=== PATIENT | male | born 1995 | race Caucasian/White ===

== ENCOUNTER 2022-03-11 18:42 | Emergency (ER) | payer MEDICAID ==
[2022-03-11] MEDS ORDERED: TORAdol 30 mg Injection IM ONE (19:14)
[2022-03-11] MEDS ORDERED: TORAdol 30 mg Injection ONE (19:15)
[2022-03-11] MEDS ORDERED: PENICILLIN V POTASSIUM PO ONE (19:17)
[2022-03-11] MEDS ORDERED: PENICILLIN V POTASSIUM ONE (19:18)
--- NOTE | 2022-03-11 19:20 | ERPHSYRPT ---
- History of Present Illness Source: patient Exam Limitations: no limitations Patient Subjective Stated Complaint: pt c/o of teeth pain on the right side top and bottom Triage Nursing Assessment: Pt brought to the ER by his girlfriend, vitallita wnl, rates pain as 9/10, pain to top and bottom back teeth on the right side of mouth, denies any other issues at this time Physician History: 26 yo wm w dental pain which he states "has been for a long time." He denies acute trauma. Pain is severe and worse w chewing. Fever is denied. Timing/Duration: gradual onset (Chronic) Severity: severe ENT Location: dental Prearrival Treatment: no prearrival treatment Modifying Factors: Improves With: other (chewing) Associated Symptoms: denies symptoms, jaw pain Allergies/Adverse Reactions: No Known Drug Allergies Allergy (Verified 03/11/22 19:01) Hx Influenza Vaccination/Date Given: No Hx Pneumococcal Vaccination/Date Given: No Travel Risk - International Travel Have you traveled outside of the country in past 3 weeks: No - Coronavirus Screening Are you exhibiting any of the following symptoms?: No Close contact with a COVID-19 positive Pt in past 14-21 Days: No - Vaccine Status Have you recieved a Covid-19 vaccination: Yes 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[employer] - Vaccination Dates Date of 2cond Vaccination (if applicable): 09/2020 - Review of Systems Constitutional: No Symptoms Eyes: No Symptoms Ears, Nose, & Throat: No Symptoms Respiratory: No Symptoms Cardiac: No Symptoms Abdominal/Gastrointestinal: No Symptoms Genitourinary Symptoms: No Symptoms Musculoskeletal: No Symptoms Skin: No Symptoms Neurological: No Symptoms Psychological: No Symptoms Endocrine: No Symptoms Hematologic/Lymphatic: No Symptoms Immunological/Allergic: No Symptoms - Past Medical History Pertinent Past Medical History: No - Past Surgical History Past Surgical History: No - Social History Smoking Status: Never smoker Exposure to second hand smoke: No Drug Use: none Patient Lives Alone: No Significant Family History: no pertinent family hx - Nursing Vital Signs Nursing Vital Signs: Initial Vital Signs Temperature 99.4 F 03/11/22 18:52 Pulse Rate 99 H 03/11/22 18:52 Blood Pressure 126/75 03/11/22 18:52 O2 Sat by Pulse Oximetry 97 03/11/22 18:52 Pain Scale Pain Intensity 10 WNL - Physical Exam General Appearance: no apparent distress Eye Exam: bilateral eye: normal inspection, PERRL, EOMI Ear Exam: bilateral ear: auricle normal, canal normal, TM normal Nasal Exam: normal inspection Throat Exam: pharynx normal, dental tenderness (L superior-inferior 2nd molars fractured and TTP), moist mucus membranes, No foreign body, No mandibular swelling, No maxillary swelling, No pharynx swelling, No pharynx tenderness, No tongue swollen, No tonsillar exudate, No tonsillar swelling, No trismus, No uvula swelling, No voice changes Neck Exam: normal inspection, non-tender, supple, full range of motion, trachea midline, No Brudzinski's sign, No carotid bruit, No Kernig's sign Cardiovascular/Respiratory Exam: normal breath sounds, regular rate/rhythm, heart sounds normal Abdominal Exam: non-tender, soft Neurologic Exam: alert, oriented x 3, 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, 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, normal mood/affect, nml cerebellar function, nml station & gait, sensation nml Skin Exam: normal color, warm, dry SpO2 Interpretation: normal SpO2: 97 O2 Delivery: Room Air - Course Nursing assessment & vital signs reviewed: Yes Ordered Tests: Medication Summary Discontinued Medications Generic Name Dose Route Start Last Admin Trade Name Freq PRN Reason Stop Dose Admin Ketorolac Tromethamine 60 mg 03/11/22 19:14 03/11/22 19:18 Ketorolac Tromethamine 30 Mg/Ml Inj IM 03/11/22 19:15 60 mg STAT ONE Administration Ketorolac Tromethamine Confirm 03/11/22 19:15 Ketorolac Tromethamine 30 Mg/Ml Inj Administered 03/11/22 19:16 Dose 60 mg .ROUTE .STK-MED ONE Penicillin V Potassium 500 mg 03/11/22 19:17 03/11/22 19:18 Penicillin V Potassium 250 Mg Tablet PO 03/11/22 19:18 500 mg STAT ONE Administration Penicillin V Potassium Confirm 03/11/22 19:18 Penicillin V Potassium 250 Mg Tablet Administered 03/11/22 19:19 Dose 500 mg .ROUTE .STK-MED ONE - Progress Progress: improved Progress Note: 03/11/22 19:20 60mg IM Toradol/500mg po PenV Counseled pt/family regarding: diagnosis, need for follow-up - Departure Departure Disposition: Home Clinical Impression: Chronic dental pain Condition: Stable Critical Care Time: No Instructions: Tooth Abscess (DC), Tooth Decay, Adult (DC) Additional Instructions: Dentist MOOK Continue with Penicillin in AM Lodine as needed for pain Prescriptions: Etodolac 400 mg [Lodine 400 mg] 400 mg PO BID PRN PRN #14 tablet PRN Reason: Pain Penicillin V Potassium 500 mg PO BID #20 tablet
[2022-03-11 19:37] VITALS: BP 120/70; PULSE 74
[2022-03-11 20:02] VITALS: O2SAT 97
== END 2022-03-11 19:37 | disposition home or self-care (01) ==
LOC: ED 18:42
DX: G89.29 Other chronic pain (principal); K08.89 Other specified disorders of teeth and supporting structures
CPT/HCPCS: 96372; 99283; J1885; A9270-GY

== ENCOUNTER 2022-04-15 21:29 | Emergency (ER) | payer MEDICAID, OTHER ==
[2022-04-15 21:48] VITALS: O2SAT 100
--- NOTE | 2022-04-15 22:29 | ERPHSYRPT ---
- History of Present Illness Time Seen by Provider: 04/15/22 21:30 Source: patient Exam Limitations: no limitations Patient Subjective Stated Complaint: PT states he took a home covid test and it was positive, states SO is also positive, Pt states ,mild cough, h/A, and sinus drainage, ER visit mainly for "peace of mind" Triage Nursing Assessment: PT ambulated to room without difficulty, Alert and oriented x3, lungs CTA bilaterally Physician History: 26 years old presented in the ER with chief complaint of flulike symptoms for the last 4 days. He was tested positive at home for COVID-19. Has mild dry cough without difficulty breathing but does have nasal congestion and sore throat. No fever or chills reported. Having generalized body aches and headaches off and on. Patient wants to be tested for COVID-19. Timing/Duration: day(s) (4), gradual onset Cough Quality/Degree: mild, dry cough Modifying Factors: Improves With: nothing Associated Symptoms: cough, muscle aches, nasal congestion, nasal drainage, sinus infection, sore throat, No shortness of breath, No wheezing Allergies/Adverse Reactions: No Known Drug Allergies Allergy (Verified 03/11/22 19:01) Hx Tetanus, Diphtheria Vaccination/Date Given: Yes Hx Influenza Vaccination/Date Given: Yes Hx Pneumococcal Vaccination/Date Given: Yes Immunizations Up to Date: Yes Travel Risk - International Travel Have you traveled outside of the country in past 3 weeks: No - Coronavirus Screening Are you exhibiting any of the following symptoms?: Yes Symptoms: Cough: New Onset, Vomiting/Diarrhea, Headaches/Body Aches/Fatigue Close contact with a COVID-19 positive Pt in past 14-21 Days: Yes - Vaccine Status Have you recieved a Covid-19 vaccination: Yes 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[employer] - Vaccination Dates Date of 2cond Vaccination (if applicable): 2020 - Review of Systems Constitutional: Fatigue, Weakness Eyes: No Symptoms Ears, Nose, & Throat: Nose Congestion, Throat Pain Respiratory: Cough Cardiac: No Symptoms Abdominal/Gastrointestinal: No Symptoms Genitourinary Symptoms: No Symptoms Musculoskeletal: Myalgias Skin: No Symptoms Neurological: No Symptoms Psychological: No Symptoms Endocrine: No Symptoms Hematologic/Lymphatic: No Symptoms Immunological/Allergic: No Symptoms - Past Medical History Pertinent Past Medical History: Yes Neurological History: No Pertinent History ENT History: No Pertinent History Cardiac History: No Pertinent History Respiratory History: No Pertinent History Endocrine Medical History: No Pertinent History Musculoskeletal History: No Pertinent History GI Medical History: No Pertinent History History: No Pertinent History Psycho-Social History: No Pertinent History Male Reproductive Disorders: No Pertinent History - Past Surgical History Past Surgical History: No - Social History Smoking Status: Never smoker Exposure to second hand smoke: No Drug Use: none Patient Lives Alone: No Significant Family History: no pertinent family hx - Nursing Vital Signs Nursing Vital Signs: Initial Vital Signs Temperature 98.4 F 04/15/22 21:36 Pulse Rate 98 H 04/15/22 21:36 Respiratory Rate 16 04/15/22 21:36 Blood Pressure 136/108 04/15/22 21:36 O2 Sat by Pulse Oximetry 100 04/15/22 21:36 Pain Scale Pain Intensity 8 - Physical Exam General Appearance: no apparent distress, alert Eye Exam: PERRL/EOMI Ears, Nose, Throat Exam: moist mucous membranes, pharyngeal erythema Neck Exam: normal inspection, supple, full range of motion Respiratory Exam: normal breath sounds, lungs clear Cardiovascular Exam: regular rate/rhythm, normal heart sounds Gastrointestinal/Abdomen Exam: soft, normal bowel sounds, No tenderness Back Exam: normal inspection, normal range of motion Extremity Exam: normal inspection, normal range of motion Neurologic Exam: alert, oriented x 3, cooperative, 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 Patient is not in any distress. Do not think needs any other work-up. Counseled on supportive care and outpatient follow-up. Discussed signs symptoms of worsening needing return to ER which he seems understanding. Blood Culture(s) Obtained: No Antibiotics given: No Counseled pt/family regarding: lab results, diagnosis, need for follow-up - Departure Departure Disposition: Home Clinical Impression: Viral syndrome, COVID-19 virus detected Condition: Stable Critical Care Time: No Referrals: DOCTOR,NO FAMILY [Primary Care Provider] - Follow up/PCP as directed JL CORTEZ DO [ACTIVE STAFF] - Follow Up with PCP/3 days Instructions: COVID-19 (DC), Viral Syndrome (DC) Additional Instructions: Take Tylenol/ibuprofen as needed. Follow-up with primary care for reevaluation. Return to ER for worsening.
[2022-04-15 22:38] VITALS: BP 157/87; PULSE 103
[2022-04-15 22:38] LABS: INFLUENZA A NEGATIVE (NEGATIVE); INFLUENZA B NEGATIVE (NEGATIVE); RESPIRATORY SYNCTIAL VIRUS NEGATIVE (Negative)
[2022-04-15 22:42] LABS: SARS-CoV-2 Xpert Express POSITIVE (NEGATIVE)
== END 2022-04-15 23:00 | disposition home or self-care (01) ==
LOC: ED 21:29
DX: U07.1 COVID-19 (principal); R05.1 Acute cough; R09.81 Nasal congestion; J02.9 Acute pharyngitis, unspecified; M79.10 Myalgia, unspecified site; R51.9 Headache, unspecified
CPT/HCPCS: 0241U; 99282

== ENCOUNTER 2023-07-03 08:57 | Emergency (ER) | payer BC, OTHER ==
[2023-07-03 09:11] VITALS: TEMP 97.7
[2023-07-03 09:18] VITALS: O2SAT 100
[2023-07-03 09:50] LABS: Absolute Neutrophil Ct (ANC) 14.34 x10^3/uL (1.4-6.9); BASOPHIL % 0.3 % (0.0-0.4); Basophil (Absolute #) 0.04 x10^3/uL (0-0.4); Eosinophil % 0.1 % (0.00-5.0); Eosinophil (Absolute #) 0.01 x10^3/uL (0-0.5); Hematocrit 48.8 % (42-50); Hemoglobin 16.4 g/dL (12.5-18.0); IMMATURE GRAN # 0.08 x10^3u/L (0.00-0.03); IMMATURE GRAN % 0.5 % (0.00-0.4); Lymphocyte (Absolute #) 0.55 x10^3/uL (1.0-4.6); Lymphocytes % 3.5 % (24.0-44.0); Mean Corpuscular Hemoglobin 28.2 pg (26-32); Mean Corpuscular Hgb Concent. 33.6 g/dL (32-36); Monocyte (Absolute #) 0.86 x10^3/uL (0.0-1.3); Monocytes % 5.4 % (0.0-12.0); Neutrophil % 90.2 % (36.0-66.0); Platelet Count 330 x10^3/uL (150-450); Red Blood Count 5.81 x10^6/uL (4.1-5.6); Red Cell Distribution Width 11.9 % (11.5-14.0); White Blood Count 15.9 x10^3/uL (4.0-10.5)
[2023-07-03 10:03] LABS: ANION GAP 16.5 MEQ/L (5-15); BILIRUBIN,TOTAL 1.7 mg/dL (0.2-1.3); Calcium 9.8 mg/dL (8.4-10.2); Creatinine 1 1.04 mg/dL (0.66-1.25); EST GLOMERULAR FILTRATION RATE 102.2 ML/MIN; Potassium 3.9 mmol/L (3.5-5.1); Total Protein 8.6 g/dL (6.3-8.2)
[2023-07-03 10:04] LABS: INFLUENZA A NEGATIVE (NEGATIVE); INFLUENZA B NEGATIVE (NEGATIVE); RESPIRATORY SYNCTIAL VIRUS NEGATIVE (NEGATIVE); SARS-CoV-2 Xpert Express NEGATIVE (NEGATIVE)
[2023-07-03 10:10] VITALS: PULSE 82; RESP 16
--- NOTE | 2023-07-03 10:10 | ERPHSYRPT ---
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 He had to pull the car over and call for help. Patient c/o N/V, diarrhea, body aches, cough. Triage Nursing Assessment: Patient arrived by ambulance. He is alert and orient ed. No SOB. No cough noted during assessment. AGEE WNL. Patient able to transfer self from EMS cot to ER bed. Skin tone normal. Denies abdominal pain. Patient does have some sniffles; clear nasal drainage. Physician History: Patient is a 27-year-old male no significant past medical history presents to our ED with complaints of nausea vomiting diarrhea body aches and a dry cough. 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 Patient began to drive home his symptoms intensified. Patient states his hands began to posture. Patient pulled over and called 911. Patient is currently asymptomatic. He denies pain. No chest pain. No shortness of breath. Patient is no longer nauseous. Symptoms are mild to moderate in intensity. Patient denies a history of the same. Patient voices no other complaints or concerns at this time. Father at bedside requesting laboratory work-up Portions of this note were created with voice recognition technology. There may be grammatical, spelling, punctuation or sound alike errors Timing/Duration: today Severity: moderate Modifying Factors: Improves With: nothing Associated Symptoms: No abdominal pain, No shortness of breath, No chills, No chest pain, No fever, No headaches, No rash, No syncope, No seizure, No weakness Allergies/Adverse Reactions: No Known Drug Allergies Allergy (Verified 07/03/23 09:02) Home Medications: Desvenlafaxine Succinate [Pristiq] 1 tab PO DAILY 07/03/23 [History] Hx Tetanus, Diphtheria Vaccination/Date Given: Yes Hx Influenza Vaccination/Date Given: Yes Hx Pneumococcal Vaccination/Date Given: No Immunizations Up to Date: Yes Travel Risk - International Travel Have you traveled outside of the country in past 3 weeks: No - Coronavirus Screening Are you exhibiting any of the following symptoms?: Yes Symptoms: Cough: New Onset, Vomiting/Diarrhea, Headaches/Body Aches/Fatigue - Vaccine Status Have you recieved a Covid-19 vaccination: Yes 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[employer] - Vaccination Dates Date of 2cond Vaccination (if applicable): 2020 - Review of Systems Constitutional: No Symptoms, No Fever, No Chills Eyes: No Symptoms Ears, Nose, & Throat: No Symptoms Respiratory: No Symptoms, No Cough, No Dyspnea Cardiac: No Symptoms, No Chest Pain, No Edema, No Syncope Abdominal/Gastrointestinal: No Symptoms, No Abdominal Pain, No Nausea, No Vomiting, No Diarrhea Genitourinary Symptoms: No Symptoms, No Dysuria Musculoskeletal: No Symptoms, No Back Pain, No Neck Pain Skin: No Symptoms, No Rash Neurological: No Symptoms, No Dizziness, No Focal Weakness, No Sensory Changes Psychological: No Symptoms Endocrine: No Symptoms Hematologic/Lymphatic: No Symptoms Immunological/Allergic: No Symptoms All Other Systems: Reviewed and Negative - Past Medical History Pertinent Past Medical History: Yes Neurological History: No Pertinent History ENT History: No Pertinent History Cardiac History: No Pertinent History Respiratory History: No Pertinent History Endocrine Medical History: No Pertinent History Musculoskeletal History: No Pertinent History GI Medical History: No Pertinent History History: No Pertinent History Psycho-Social History: Depression Male Reproductive Disorders: No Pertinent History Other Medical History: IBS, 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 Ríos) - Past Surgical History Past Surgical History: No - Social History Smoking Status: Never smoker Exposure to second hand smoke: No Drug Use: none Patient Lives Alone: No Significant Family History: no pertinent family hx - Nursing Vital Signs Nursing Vital Signs: Initial Vital Signs Temperature 97.7 F 07/03/23 09:03 Pulse Rate 81 07/03/23 09:03 Respiratory Rate 17 07/03/23 09:03 Blood Pressure 130/80 07/03/23 09:03 O2 Sat by Pulse Oximetry 99 07/03/23 09:03 Pain Scale Pain Intensity 3 - Physical Exam General Appearance: no apparent distress, alert Eye Exam: PERRL/EOMI, eyes nml inspection Ears, Nose, Throat Exam: normal ENT inspection, TMs normal, pharynx normal, mois t mucous membranes Neck Exam: normal inspection, non-tender, supple, full range of motion Respiratory Exam: normal breath sounds, lungs clear, airway intact, No respiratory distress Cardiovascular Exam: regular rate/rhythm, normal heart sounds, normal peripheral pulses Gastrointestinal/Abdomen Exam: soft, normal bowel sounds, No tenderness, No mass Back Exam: normal inspection, normal range of motion, No CVA tenderness, No vertebral tenderness Extremity Exam: normal inspection, normal range of motion, pelvis stable Neurologic Exam: alert, oriented x 3, cooperative, normal mood/affect, nml cerebellar function, nml station & gait, sensation nml, No motor deficits Skin Exam: normal color, warm, dry, No rash Lymphatic Exam: No adenopathy SpO2 Interpretation: normal SpO2: 100 O2 Delivery: Room Air - Course Nursing assessment & vital signs reviewed: Yes Ordered Tests: Active Orders 24 hr Category Date Time Status CBC W DIFF Stat Lab 07/03/23 09:47 Completed CMP Stat Lab 07/03/23 09:47 Completed Lab/Rad Data: Laboratory Result Diagrams 07/03/23 09:47 07/03/23 09:47 Laboratory Results 07/03/23 07/03/23 07/03/23 Range/Units 09:47 09:47 09:26 WBC 15.9 H (4.0-10.5) x10^3/uL RBC 5.81 H (4.1-5.6) x10^6/uL Hgb 16.4 (12.5-18.0) g/dL Hct 48.8 (42-50) % MCV 84.0 (78-100) fL MCH 28.2 (26-32) pg MCHC 33.6 (32-36) g/dL RDW 11.9 (11.5-14.0) % Plt Count 330 (150-450) x10^3/uL MPV 10.0 (7.5-11.0) fL Gran % 90.2 H (36.0-66.0) % Immature Gran % (Auto) 0.5 H (0.00-0.4) % Nucleat RBC Rel Count 0.0 (0.00-0.1) % Eos # (Auto) 0.01 (0-0.5) x10^3/uL Immature Gran # (Auto) 0.08 H (0.00-0.03) x10^3u/L Absolute Lymphs (auto) 0.55 L (1.0-4.6) x10^3/uL Absolute Monos (auto) 0.86 (0.0-1.3) x10^3/uL Absolute Nucleated RBC 0.00 (0.00-0.01) x10^3u/L Lymphocytes % 3.5 L (24.0-44.0) % Monocytes % 5.4 (0.0-12.0) % Eosinophils % 0.1 (0.00-5.0) % Basophils % 0.3 (0.0-0.4) % Absolute Granulocytes 14.34 H (1.4-6.9) x10^3/uL Basophils # 0.04 (0-0.4) x10^3/uL Sodium 141 (137-145) mmol/L Potassium 3.9 (3.5-5.1) mmol/L Chloride 104 (98-107) mmol/L Carbon Dioxide 25 (22-30) mmol/L Anion Gap 16.5 H (5-15) MEQ/L BUN 16 (9-20) mg/dL Creatinine 1.04 (0.66-1.25) mg/dL Estimated GFR 102.2 ML/MIN Glucose 114 H (74-106) mg/dL Calcium 9.8 (8.4-10.2) mg/dL Total Bilirubin 1.70 H (0.2-1.3) mg/dL AST 26 (17-59) U/L ALT 39 (0-50) U/L Alkaline Phosphatase 102 (38-126) U/L Serum Total Protein 8.6 H (6.3-8.2) g/dL Albumin 5.0 (3.5-5.0) g/dL Influenza Type A Ag NEGATIVE (NEGATIVE) Influenza Type B Ag NEGATIVE (NEGATIVE) RSV (PCR) NEGATIVE (NEGATIVE) SARS-CoV-2 (PCR) NEGATIVE (NEGATIVE) Slides for Path Review YES - Progress Progress: improved Progress Note: Patient is a 27-year-old male presents to our ED for evaluation of nausea vomiting diarrhea body aches dry cough. Symptoms worsened as he was driving home from his night cleaner. Upon arrival to our ED patient was asymptomatic. Father at bedside requesting laboratory work-up. Patient has a slight leukoc ytosis however there is no fever. No nidus of infection observed on today's physical exam. We will discharge patient home. Patient requested a work note. Patient is scheduled to work today and tomorrow. He will then be off till Sunday. We provided patient a work note so that he may return to work on Sunday. Father at bedside. They voiced no other complaints or concerns at this time. Portions of this note were created with voice recognition technology. There may be grammatical, spelling, punctuation or sound alike errors Complexity of problem addressed is moderate acute complicated No critical care time Complexity of data reviewed and analyzed is moderate. Test ordered test revi ewed. Results analyzed and correlated clinically with history and physical examination. Risk of complication and or risk of morbidity/mortality of patient management is low. Vital stable. Time spent to discharge patient is approximately 10 minutes. Plan of care established for shared decision making. No social determinants of health present to impede follow-up. Portions of this note were created with voice recognition technology. There may be grammatical, spelling, punctuation or sound alike errors 07/03/23 10:42 Counseled pt/family regarding: lab results, diagnosis, need for follow-up - Departure Departure Disposition: Home Clinical Impression: Viral syndrome, Nausea vomiting and diarrhea, Body aches Condition: Stable Critical Care Time: No Referrals: MERYL RÍOS [Primary Care Provider] - Follow up/PCP as directed Instructions: Viral Syndrome (DC) Additional Instructions: Discharge/Care Plan PRESTON SHELTON was seen on 07/03/23 in the Emergency Room. The patient was counseled regarding Diagnosis,Lab results, Imaging studies, need for follow up and when to return to the Emergency Room. Prescriptions given: Discharge Note I have spoken with the patient and/or caregivers. I have explained the patient's condition, diagnosis and treatment plan based on the information available to me at this time. I have answered the patient's and/or caregiver's questions and addressed any concerns. The patient and/or caregivers have as good understanding of the patient's diagnosis, condition and treatment plan as can be expected at this point. The vital signs have been stable. The patient's condition is stable and appropriate for discharge from the emergency department. The patient will pursue further outpatient evaluation with the primary care physician or other designated or consulting physician as outlined in the discha rge instructions. The patient and/or caregivers are agreeable to this plan of care and follow-up instructions have been explained in detail. The patient and/or caregivers have received these instruction. The patient/and or caregivers are aware that any significant change in condition or worsening of symptoms should prompt an immediate return to this or the closest emergency department or call 911. Forms: Work/School Release Form
[2023-07-03 10:38] LABS: Slide Review 1 YES
[2023-07-03 10:47] VITALS: BP 127/84
== END 2023-07-03 10:48 | disposition home or self-care (01) ==
LOC: ED 08:57
DX: B34.9 Viral infection, unspecified (principal); R11.2 Nausea with vomiting, unspecified; R19.7 Diarrhea, unspecified; M79.10 Myalgia, unspecified site; R05.1 Acute cough; Z79.899 Other long term (current) drug therapy
CPT/HCPCS: 0241U; 36415; 80053; 85025; 99282